=== PATIENT | female | born 1995 | race Two or more races ===

== ENCOUNTER 2017-06-13 15:38 | Observation (INO) | payer MEDICAID ==
[~2017-06-13] VITALS: Ht 177.8 cm; Wt 59.0 kg
[2017-06-13 17:18] LABS: Basophils # (auto) 0 uL; Basophils % (auto) 0.2 % (0.0-2.0); Eosinophils # (auto) 0.1 uL; Eosinophils % (auto) 0.7 % (0.0-7.0); Hematocrit 44.1 % (36.0-46.0); Hemoglobin 14.7 g/dL (12.2-16.2); Lymphocytes # (auto) 1.4 uL; Mean Corpuscular Hemoglobin 28.8 pg (28.0-32.0); Mean Corpuscular Hgb Conc. 33.4 g/dL (32.0-36.0); Mean Corpuscular Volume 86.2 fL (80.0-100.0); Mean Platelet Volume 8.3 fL (6.9-10.8); Monocytes % (auto) 7.2 % (0.0-12.0); Neutrophils # (auto) 11.5 uL; Neutrophils % (auto) 81.9 % (37.0-80.0); Platelet Count (auto) 415 10^3/uL (140-450); Red Cell Distribution Width 14.6 % (11.8-14.3)
[2017-06-13 17:23] LABS: Urine Bilirubin Negative (Negative); Urine Blood Negative /uL (Negative); Urine Color Yellow (Yellow); Urine Glucose Normal (Normal); Urine Ketone Negative (Negative); Urine Nitrite POSITIVE (Negative); Urine RBC 3 /hpf (0 - 4); Urine Squamous Epithelial Cell FEW /hpf (<5); Urine Urobilinogen Normal (Negative); Urine WBC Clumps PRESENT /hpf (None Seen); Urine pH 6.5 (5.0-8.0)
[2017-06-13 17:35] LABS: BUN/Creatinine Ratio 11.6; Calcium 8.9 mg/dL (8.5-10.1); Potassium 4.9 mmol/L (3.5-5.1)
[2017-06-13] MEDS ORDERED: SODIUM CHLORIDE 0.9% 1,000 ML IVB ONE (19:00)
[2017-06-13] MEDS ORDERED: ONDANSETRON HCL 4 MG/2 ML VIAL IV ONE (19:00)
[2017-06-13] MEDS ORDERED: cefTRIAXone 1GM/50ML D5W 50 ML IV ONE (20:30)
[2017-06-13 21:15] VITALS: BP 124/75
== END 2017-06-14 00:03 | disposition home or self-care (01) | DRG 463 ==
LOC: ER 15:45 → OVERFLOW 19:03 → ER 06-14 00:01
PROVIDERS: ADMIT Family Medicine; ATTEND Family Medicine
DX: N39.0 Urinary tract infection, site not specified (principal); F17.210 Nicotine dependence, cigarettes, uncomplicated; R11.2 Nausea with vomiting, unspecified; R10.31 Right lower quadrant pain
CPT/HCPCS: 36415; 71010; 74176; 76856; 80048; 81001; 84702; 85025; 96365; 96375; G0378; J0696; J2405

== ENCOUNTER 2018-02-13 18:08 | Emergency (ER) | payer MEDICAID ==
[~2018-02-13] VITALS: Ht 177.8 cm; Wt 54.4 kg
[2018-02-13 18:33] VITALS: BP 128/79
== END 2018-02-13 22:00 | disposition left against medical advice (07) ==
LOC: ER 18:08
DX: R19.00 Intra-abdominal and pelvic swelling, mass and lump, unspecified site (principal); Z53.21 Procedure and treatment not carried out due to patient leaving prior to being seen by health care provider

== ENCOUNTER 2018-02-14 01:54 | Emergency (ER) | payer MEDICAID ==
[~2018-02-14] VITALS: Ht 177.8 cm; Wt 59.0 kg
[2018-02-14 02:56] LABS: Basophils # (auto) 0.1 uL; Basophils % (auto) 0.8 % (0.0-2.0); Eosinophils # (auto) 0.2 uL; Eosinophils % (auto) 1.4 % (0.0-7.0); Hematocrit 46.6 % (36.0-46.0); Hemoglobin 15.7 g/dL (12.2-16.2); Lymphocytes # (auto) 2.4 uL; Lymphocytes % (auto) 20.1 % (10.0-50.0); Mean Corpuscular Hemoglobin 29.7 pg (28.0-32.0); Mean Corpuscular Hgb Conc. 33.6 g/dL (32.0-36.0); Mean Corpuscular Volume 88.3 fL (80.0-100.0); Monocytes # (auto) 1.3 uL; Monocytes % (auto) 10.9 % (0.0-12.0); Neutrophils % (auto) 66.8 % (37.0-80.0); Nucleated Red Blood Cells % 0.1 %; Platelet Count (auto) 281 10^3/uL (140-450); Red Blood Cells 5.28 10^6/uL (4.0-5.20); Red Cell Distribution Width 14.2 % (11.8-14.3); White Blood Cell 11.9 10^3/uL (4.4-10.8)
[2018-02-14 03:11] LABS: Albumin 3.7 g/dL (3.4-5.0); BUN/Creatinine Ratio 15.9; Calcium 9.1 mg/dL (8.5-10.1); Potassium 4.3 mmol/L (3.5-5.1)
[2018-02-14 03:14] LABS: Bilirubin, Total 0.5 mg/dL (0.2-1.0); Total Protein 8.2 g/dL (6.4-8.2)
[2018-02-14 05:29] LABS: Urine Bacteria MOD /hpf (None Seen); Urine Blood Negative /uL (Negative); Urine Mucus FEW (None Seen); Urine Specific Gravity 1.028 (1.001-1.035); Urine WBC 38 /hpf (0 - 5)
[2018-02-14 05:55] LABS: Alcohol, Urine < 3.0 mg/dL (0-5); Amphetamine Screen, Urine POSITIVE (NEGATIVE); Barbiturate Scree,Urine NEGATIVE (NEGATIVE); Benzodiazephine Screen, Urine NEGATIVE (NEGATIVE); Cannabinoid Screen, Urine NEGATIVE (NEGATIVE); Cocaine Screen, Urine NEGATIVE (NEGATIVE); Opiate Scree,Urine NEGATIVE (NEGATIVE); Phencyclidine Screen, Urine NEGATIVE (NEGATIVE)
[2018-02-14 07:41] VITALS: BP 101/63
[2018-02-14] MEDS ORDERED: HYDROcodone-ACET 10/325MG TAB PO ONE (08:00)
== END 2018-02-14 08:24 | disposition home or self-care (01) ==
LOC: ER 01:54
DX: M25.552 Pain in left hip (principal); N39.0 Urinary tract infection, site not specified; F15.10 Other stimulant abuse, uncomplicated; F17.210 Nicotine dependence, cigarettes, uncomplicated; F12.10 Cannabis abuse, uncomplicated; Z88.0 Allergy status to penicillin
CPT/HCPCS: 36415; 80053; 80307; 81001; 83605; 85025; 87040

== ENCOUNTER → 2018-03-15 | Emergency (ER) | payer MEDICAID | END | disposition left against medical advice (07) | LOC: ER 21:07 | DX: R11.10 Vomiting, unspecified (principal); Z53.21 Procedure and treatment not carried out due to patient leaving prior to being seen by health care provider ==

== ENCOUNTER 2018-03-20 20:45 | Emergency (ER) | payer MEDICAID ==
[~2018-03-20] VITALS: Ht 175.3 cm; Wt 52.2 kg
[2018-03-20 21:53] VITALS: BP 121/84
[2018-03-20] MEDS ORDERED: HYDROcodone-ACET 10/325MG TAB PO ONE (22:30)
== END 2018-03-20 22:52 | disposition home or self-care (01) ==
LOC: ER 20:45
DX: M25.511 Pain in right shoulder (principal); F17.210 Nicotine dependence, cigarettes, uncomplicated; Z88.0 Allergy status to penicillin
CPT/HCPCS: 73000; 81025

== ENCOUNTER 2018-04-19 20:34 | Emergency (ER) | payer MEDICAID ==
[~2018-04-19] VITALS: Ht 175.3 cm; Wt 61.2 kg
[2018-04-19 20:40] VITALS: BP 129/89
[2018-04-19] MEDS ORDERED: ACETAMINOPHEN 500 MG TAB PO ONE (20:49)
[2018-04-19 21:51] LABS: Basophils # (auto) 0.1 uL; Eosinophils # (auto) 0 uL; Eosinophils % (auto) 0.1 % (0.0-7.0); Hemoglobin 14.5 g/dL (12.2-16.2); Lymphocytes # (auto) 0.7 uL; Lymphocytes % (auto) 10.1 % (10.0-50.0); Mean Corpuscular Hgb Conc. 32.9 g/dL (32.0-36.0); Mean Corpuscular Volume 84.9 fL (80.0-100.0); Monocytes # (auto) 0.6 uL; Monocytes % (auto) 9.4 % (0.0-12.0); Neutrophils # (auto) 5.3 uL; Neutrophils % (auto) 78.4 % (37.0-80.0); Nucleated Red Blood Cells % 0.1 %; Platelet Count (auto) 234 10^3/uL (140-450); Red Blood Cells 5.19 10^6/uL (4.0-5.20); Red Cell Distribution Width 13.6 % (11.8-14.3); White Blood Cell 6.7 10^3/uL (4.4-10.8)
[2018-04-19 22:06] LABS: Alanine Aminotransferase 26 U/L (13-56); Albumin 2.7 g/dL (3.4-5.0); Anion Gap 9 (5-15); Aspartate Aminotransferase 31 U/L (15-37); BUN/Creatinine Ratio 9.5; Blood Urea Nitrogen 8 mg/dL (7-18); Calcium 7.7 mg/dL (8.5-10.1); Carbon Dioxide 23 mmol/L (21-32); Chloride 101 mmol/L (98-107); GFR African American 111 mL/min; GFR Non-African American 92 mL/min; Glucose 82 mg/dL (74-106); Potassium 3.6 mmol/L (3.5-5.1); Sodium 133 mmol/L (136-145)
[2018-04-19 22:09] LABS: Alkaline Phosphatase 86 U/L (45-117); Bilirubin, Total 0.3 mg/dL (0.2-1.0); Total Protein 7.7 g/dL (6.4-8.2)
[2018-04-19 22:28] LABS: INR 0.99 (0.9-1.15); Partial Thromboplastin Time 33.9 sec (23.78-33.04); Prothrombin Time 10.6 sec (9.27-12.13)
== END 2018-04-20 | disposition left against medical advice (07) ==
LOC: ER 20:37
DX: R10.9 Unspecified abdominal pain (principal); R53.1 Weakness; R50.9 Fever, unspecified; Z53.21 Procedure and treatment not carried out due to patient leaving prior to being seen by health care provider
CPT/HCPCS: 36415; 71045; 80053; 83605; 83880; 85025; 85610; 85730

== ENCOUNTER 2018-06-04 07:05 | Emergency (ER) | payer SELFPAY ==
[~2018-06-04] VITALS: Ht 177.8 cm; Wt 56.7 kg
[2018-06-04 07:30] VITALS: BP 130/83
[2018-06-04] MEDS ORDERED: AZITHROMYCIN 250 MG TAB PO ONE (08:15)
[2018-06-04] MEDS ORDERED: cefTRIAXone SOD 1,000 MG VL IM ONE (08:15)
[2018-06-04 08:33] LABS: Urine Pregnacy Test Negative (Negative)
[2018-06-04 08:37] LABS: Urine Bacteria FEW /hpf (None Seen); Urine Blood Negative /uL (Negative); Urine Specific Gravity 1.023 (1.001-1.035); Urine WBC 36 /hpf (0 - 5)
[2018-06-04 08:52] LABS: Alcohol, Urine < 3.0 mg/dL (0-5); Amphetamine Screen, Urine POSITIVE (NEGATIVE); Barbiturate Scree,Urine NEGATIVE (NEGATIVE); Benzodiazephine Screen, Urine NEGATIVE (NEGATIVE); Cannabinoid Screen, Urine NEGATIVE (NEGATIVE); Cocaine Screen, Urine NEGATIVE (NEGATIVE); Opiate Scree,Urine NEGATIVE (NEGATIVE); Phencyclidine Screen, Urine NEGATIVE (NEGATIVE)
== END 2018-06-04 09:00 | disposition home or self-care (01) ==
LOC: ER 07:05
DX: A60.00 Herpesviral infection of urogenital system, unspecified (principal); N39.0 Urinary tract infection, site not specified; F15.10 Other stimulant abuse, uncomplicated; F12.10 Cannabis abuse, uncomplicated; F17.210 Nicotine dependence, cigarettes, uncomplicated; Z88.0 Allergy status to penicillin
CPT/HCPCS: 80307; 81001; 81025; 82962; 96372; 99284; J0696

== ENCOUNTER 2025-07-24 17:51 | Emergency (ER) | payer MEDICAID ==
[~2025-07-24] VITALS: Ht 175.3 cm; Wt 69.1 kg
[2025-07-24 18:46] LABS: Hematocrit 44.9 % (36.0-46.0); Hemoglobin 15.5 g/dL (12.2-16.2); Mean Corpuscular Hemoglobin 29.9 pg (28.0-32.0); Mean Corpuscular Volume 86.6 fL (80.0-100.0); Nucleated Red Blood Cells % 0.2 %
--- NOTE | 2025-07-24 18:54 | ED.PDOC ---
GI ASSESSMENT HPI Comments HPI: Past Medical history: Crohn's Radha, Lupus Past Surgical history: Hernia Repair Medications: Social History: Denies smoking, ETOH use. Uses Methamphetamine/ Marijuana Allergies: Penicillin GALLARDO: HPI: Poor Historian. 29-year-old female presents to emergency department for one day history of suprapubic pain constant without any alleviating precipitating factors. Denies any associated symptoms of diarrhea nausea or vomiting or fever. Patient admits to use of methamphetamine. She has history of Crohn's but she does not think that this is her Crohn's. Patient is not sure if she is or not. Denies any bleeding from anywhere. Patient did not take any medications for her symptoms prior to arrival to the ED. Denies any vaginal bleed. REVIEW OF SYSTEMS: CONSTITUTIONAL: Denies acute: fever, diaphoresis, chills, generalized weakness. HEAD: Denies acute: headache, photophobia Eyes: Denies acute: Double vision, vision loss, eye pain, eye discharge. EARS: Denies acute: tinnitus, hearing loss, ear discharge, ear pain, THROAT: Denies acute: sore throat, swelling, difficulty swallowing , pain with swallowing, change in voice. NECK: Denies acute: neck pain, neck swelling, stiff neck. HEART: Denies acute : chest pain, palpitations, LUNGS: Denies acute: SOB, wheezing, cough, hemoptysis ABDOMEN: Denies acute: Nausea, Vomiting, diarrhea, melena , hematemesis, hematochezia SKIN: Denies acute: rash, redness, lesions, itchiness. EXTREMITIES: Denies acute: calf pain, numbness, tingling, weakness, denies pain in extremity. Denies acute: Low back pain. Neuro: Denies acute: focal neurological deficit, motor or sensory focal neurological deficit, tremors, seizure like activity, confusion, dizziness, change in mental status, loss of bowel or bladder function, cauda equina like symptoms. : Denies acute: dysuria, hematuria, flank pain, increase in urinary frequency. PSYCH: Denies acute: hallucination, suicidal ideation, homicidal ideation. FEMALE: Denies acute: abnormal vaginal bleeding, foul odor, unusual discharge. PHYSICAL EXAM: General: ----[id number]----acute distress, awake and alert. Head: normocephalic, atraumatic. No raccoon's eyes, no miguel sign. Neck: supple, trachea is midline, no swelling. Throat: Normal phonation. Eyes:, no erythema, no purulent discharge, no proptosis, no icterus. Heart: regular tachycardic, no significant murmur appreciated. Lungs: no apparent respiratory distress, Able to speak in full sentences. No wheezing, no rhonchi, no crackles. No stridors Clear to auscultation bilaterally. Abdomen: Suprapubic tender to palpation, non distended, soft, no guarding, no rebound, + bowel sounds. Neuro: Awake, Alert, oriented to name, self, situation, follows commands GCS=15. Speech is normal. Skin: no petechia, no purpura, no cyanosis, non-pale, not jaundice. Lower extremities: --trace- Pitting edema no deformity, no focal swelling, no calf TTP. Makes eye contact. moves all four extremities. Face: no apparent facial droop. Ambulating in the ED independently. ED COURSE: DISCLAIMER: This medical document was created using an electronic medical record system with voice recognition software and computerized dictation system. Although this document has been carefully reviewed, there might still be some phonetic and typographical errors. Occasional wrong-word or "sound-alike" substitutions may have occurred due to the inherent limitations of voice recognition software. These areas are purely typographical due to imperfections of the software programs and do not reflect any compromise in the patient's medical care. Please read the chart carefully and recognize, using context, where these substitutions have occurred. Chief Complaint: Abdominal Pain Time Seen by MD: 18:50 Primary Care Provider: NONE Reviewed Notes: Nurses Notes, Medications, Allergies Allergies: Coded Allergies: Penicillins (Verified Allergy, Severe, 06/13/17) Home Meds Active Scripts Diphenhydramine Hcl (Benadryl Allergy) 25 Mg Cap, 25 MG PO Q8HR for 5 Days, #15 CAP Prov:DAVID BARDALES DO 07/24/25 Cephalexin Monohydrate (Cephalexin) 500 Mg Cap, 500 MG PO Q8HR for 5 Days, #15 CAP Prov:DAVID BARDALES DO 07/24/25 Information Source: Patient Mode of Arrival: Ambulatory Was a procedure done? Was a procedure done?: No GI differential Dx Differential Diagnosis: Other (DDX include Diverticulitis, colitis, gastroenteritis, acute abdomen, SBO, enteritis, constipation, volvulus, appendicitis, Gallbladder disease, choledocolithiasis, ascending cholangitis, pancreatitis, intraAbdominal mass/neoplasm, hepatitis, UTI, pylonephritis, kidney stone, aneurysm, dissection, Inflammatory bowel disease, gastroparesis, ischemic bowel,,,,,,Food poisoning, bacterial/parasitic/viral etiology, trauma, diabetes DKA,ovarian torsion, ovarian cyst/mass, tubo-ovarian abscess, , ectopic , PID, STD.) X-Ray, Labs, Meds, VS Vital Signs Date Time Temp Pulse Resp B/P (MAP) Pulse Ox O2 Delivery O2 Flow Rate FiO2 07/24/25 18:00 98.0 99 16 129/99 100 98.0 Lab Test 07/24/25 19:05 07/24/25 18:29 Range/Units Urine Color Yellow Yellow Urine Clarity Turbid H Clear Urine pH 6.0 5.0-9.0 Urine Specific [place] 1.034 1.001-1.035 Urine Protein 1+ H Negative Urine Ketones 1+ H Negative Urine Blood Negative Negative /uL Urine Nitrite Negative Negative Urine Bilirubin Negative Negative Urine Urobilinogen Normal Negative mg/dL Urine Leukocyte Esterase 1+ Negative /uL Urine RBC 3 0 - 4 /hpf Urine Microscopic WBC 13 H 0-5 /HPF Urine Squamous Epithelial Cells Mod <5 /hpf Urine Bacteria None seen None Seen /hpf Urine Mucus Few None Seen Urine Glucose Normal Normal mg/dL Urine Test Positive Negative Urine Opiates Screen Neg NEGATIVE Urine Fentanyl Screen Neg NEGATIVE Urine Barbiturates Screen Neg NEGATIVE Urine Phencyclidine Screen Neg NEGATIVE Urine Amphetamines Screen Pos NEGATIVE Urine Benzodiazepines Screen Neg NEGATIVE Urine Cocaine Screen Neg NEGATIVE Urine Cannabinoids Screen Neg NEGATIVE White Blood Count 11.3 H 4.4-10.8 10^3/uL Red Blood Count 5.18 4.0-5.20 10^6/uL Hemoglobin 15.5 12.2-16.2 g/dL Hematocrit 44.9 36.0-46.0 % Mean Corpuscular Volume 86.6 80.0-100.0 fL Mean Corpuscular Hemoglobin 29.9 28.0-32.0 pg Mean Corpuscular Hemoglobin Concent 34.5 32.0-36.0 g/dL Red Cell Distribution Width 13.2 11.8-14.3 % Platelet Count 297 140-450 10^3/uL Mean Platelet Volume 9.0 6.9-10.8 fL Neutrophils (%) (Auto) 77.5 37.0-80.0 % Lymphocytes (%) (Auto) 14.5 10.0-50.0 % Monocytes (%) (Auto) 7.3 0.0-12.0 % Eosinophils (%) (Auto) 0.3 0.0-7.0 % Basophils (%) (Auto) 0.4 0.0-2.0 % Neutrophils # (Auto) 8.8 H 1.6-8.6 10 ^3/uL Lymphocytes # (Auto) 1.6 0.4-5.4 10 ^3/uL Monocytes # (Auto) 0.8 0-1.3 10 ^3/uL Eosinophils # (Auto) 0 0-0.8 10 ^3/uL Basophils # (Auto) 0 0-0.2 10 ^3/uL Nucleated Red Blood Cells 0.2 % Sodium Level 139 136-145 mmol/L Potassium Level 3.9 3.5-5.1 mmol/L Chloride Level 106 98-107 mmol/L Carbon Dioxide Level 23 20-31 mmol/L Anion Gap 10 5-15 Blood Urea Nitrogen 8 L 9-23 mg/dL Creatinine 0.85 0.550-1.02 mg/dL Glomerular Filtration Rate Calc 96 >90 mL/min BUN/Creatinine Ratio 9.4 L 10.0-20.0 Serum Glucose 81 74-106 mg/dL Lactic Acid Level 1.1 0.4-2.0 mmol/L Calcium Level 9.8 8.7-10.4 mg/dL Total Bilirubin 1.0 0.2-1.0 mg/dL Aspartate Amino Transferase (AST) 25 13-40 U/L Alanine Aminotransferase (ALT) 20 7-40 U/L Alkaline Phosphatase 67 46-116 U/L Total Protein 7.8 5.7-8.2 g/dL Albumin 4.6 3.2-4.8 g/dL Lipase 34 12-53 U/L Beta HCG, Quantitative 209.2 H 1.5-4.2 mIU/mL Time of 1ST Reevaluation: :20 Reevaluation 1ST: Unchanged Patient Education/Counseling: Diagnosis, Treatment Family Education/Counseling: No Family Present Comments Patient states that she had Keflex in the past with Benadryl and had no adverse effect/allergic reaction with this regimen. She has history of anaphylactic reaction to penicillin. She does not know if she ever had Rocephin before or not. MDM: patient presented with the above HPI.---abdominal pain---workup was initiated. patient was found with the above mentioned diagnosis. the following medications were ordered: please refer to order lists of meds and tests obtained by myself Dr. Bardales. Patient ED course and VS have been stabilized. Patient has been reassessed in the ED and remained in a stable condition. Pertinent incidental findings were discussed with the patient and/or family. Patient/family voices understanding and is agreeable with plan. Patient has been observed in the ED adequate length of time to insure improvement/stability. Escalation of care considered: Consideration of escalation to observation or admission Patient was found with a positive test she did not know about. Pelvic ultrasound was obtained which was probably too early to reveal any intrauterine at this time. Beta-hCG level is still very low. We will continue to monitor. Patient was DISCHARGED home in a stable condition. All the reports of any imaging studies that were ordered by myself were reviewed by myself. SEPSIS Sepsis Screen Date sepsis recognized/suspect: Jul 24, 2025 Time Sepsis recognized/suspect: 1800 Recent Procedure: No Respiratory Rate >20: No Heart Rate >90: Yes Temp<36 C (96.8 F) or >38.3 C: No SBP <90 or MAP <65 mmHG: No New Acute Mental Status Change: No Is the patient on CPAP, BIPAP,: No Physician Orders Rug Cleaner Hand (07/24/25 ) Ob Ultrasound Comp Less 14wks (07/24/25 20:08) Vital Signs Date Time Temp Pulse Resp B/P (MAP) Pulse Ox O2 Delivery O2 Flow Rate FiO2 07/24/25 18:00 98.0 99 16 129/99 100 98.0 Laboratory Tests Test 07/24/25 18:29 Lactic Acid Level 1.1 mmol/L (0.4-2.0) White Blood Count 11.3 10^3/uL (4.4-10.8) H Departure 1 Departure Time of Disposition: 20:21 Impression: Primary Impression: Urinary tract infection Additional Impressions: Suprapubic pain Positive test Methamphetamine abuse Disposition: HOME / SELF CARE / HOMELESS Condition: Stable Additional Instructions: Additional instructions: Please read all instructions provided in this packet carefully. You MUST follow-up with your primary care/family doctor in 1 to 2 days. If you are unable to see your primary care/family doctor, please return to our emergency room for re-assessment and re-evaluation in 1 to 2 days. Return to the emergency room here in our facility or to the nearest ER [facility] if your symptoms change or worsen. CONSULTATIONS: you MUST Follow-up for consultation as soon as possible with: -gastroenterology and OB Gyne doctor in 1-2 days. Please call for appointment You MUST call the consultants office yourself to make an appointment. You may need to arrange that through your insurance and/or your primary/family doctor. If you are unable to see the financial services consultant in 1 to 2 days, you must return to our emergency room (or any other ER of your choice) for re-assessment and re- evaluation. Adequate fluid hydration. Although you have been discharged from the Emergency Department, this does not mean that you have a "clean bill of health". No definitive diagnosis for your symptoms has been made today. It is possible that you are in the process of developing a serious illness. This is why you must return to the ED without fail if any new or worsening symptoms develop. Absolute pelvic rest. Repeat pelvic ultrasound in 4-5 days. Repeat beta-hCG levels in 48-72 hours. Your beta-hCG level today is 209 As we discussed take the Benadryl pill 1st then wait 30 minutes and take the antibiotics afterwards to prevent any allergic reaction. Take daily vitamins. Below is a copy of your radiological report for follow up: [address] [address] Ph: [phone] DIAGNOSTIC IMAGING Diagnostic Imaging Report : [id number] Signed PATIENT: BESS GALLARDO ACCT: [id number] UNIT: [id number] : 1995 LOC: ER ROOM / BED: / AGE / SEX: 29 / F ADM STATUS: REG ER SERVICE 07 ORDERING PHYSICIAN: DAVID BARDALES DO PROCEDURE(s): OB4US - OB ULTRASOUND COMP LESS 14WKS REASON: pelvic pain ORDER NUMBER(s): [id number], ACCESSION NUMBER(s): [id number] OB ULTRASOUND <14 WEEKS: HISTORY: pelvic pain TECHNIQUE: Multiple real-time grayscale sonographic images of the pelvis with duplex Doppler color flow, spectral and M-mode analysis. COMPARISON: CT ABDOMEN PELVIS W CON on DOS: 07/25/24, US PELVIC COMPLETE on DOS: 04/22/24, CT ABDOMEN PELVIS W CON on DOS: 01/11/24, US TRANSVAGINAL on DOS: 12/21/23, CT ABDOMEN PELVIS WO CON on DOS: 11/05/23 FINDINGS: The uterus measures 8.2 x 3.1 x 5.2 cm The cervix is unremarkable Ovaries not imaged as the patient did not wish to continue. No intrauterine gestation is seen. IMPRESSION: Limited assessment as the patient did not wish to continue with the study. No intrauterine gestation is seen. Ovaries and adnexa not imaged. ATED BY: ELIS VU MD DICTATED DATE/TIME: 07/24/252118 SIGNED BY: ELIS VU MD SIGNED DATE/TIME: 07/24/252118 CC: e-Prescriptions Diphenhydramine Hcl (Benadryl Allergy) 25 Mg Cap 25 MG PO Q8HR for 5 Days, #15 CAP Prov: DAVID BARDALES DO 07/24/25 Cephalexin Monohydrate (Cephalexin) 500 Mg Cap 500 MG PO Q8HR for 5 Days, #15 CAP Prov: DAVID BRADALES DO 07/24/25 Discharged With: Self Critical Care Note Critical Care Time?: No Heart Score Heart Score: Heart Score Response (Comments) Value History N/A 0 EKG N/A 0 Age N/A 0 Risk Factors N/A 0 Troponin N/A 0 Total 0 I personally scribed for DAVID BARDALES DO ([email or web address]) on 07/24/25 at 18:54. Electronically submitted by Tomas Roman ([email or web address]). DAVID BARDALES DO Jul 24, 2025 18:54
[2025-07-24 19:01] LABS: Alanine Aminotransferase 20 U/L (7-40); Albumin 4.6 g/dL (3.2-4.8); Alkaline Phosphatase 67 U/L (46-116); Anion Gap 10 (5-15); BUN/Creatinine Ratio 9.4 (10.0-20.0); Calcium 9.8 mg/dL (8.7-10.4); Carbon Dioxide 23 mmol/L (20-31); Chloride 106 mmol/L (98-107); Glucose 81 mg/dL (74-106); Lipase 34 U/L (12-53); Potassium 3.9 mmol/L (3.5-5.1); Sodium 139 mmol/L (136-145); Total Protein 7.8 g/dL (5.7-8.2)
[2025-07-24 19:02] LABS: Bilirubin, Total 1.0 mg/dL (0.2-1.0); Blood Urea Nitrogen 8 mg/dL (9-23)
[2025-07-24 19:41] LABS: Amphetamine Screen, Urine Pos (NEGATIVE); Barbiturate Scree,Urine Neg (NEGATIVE); Benzodiazephine Screen, Urine Neg (NEGATIVE); Cannabinoid Screen, Urine Neg (NEGATIVE); Cocaine Screen, Urine Neg (NEGATIVE); Opiate Scree,Urine Neg (NEGATIVE); Phencyclidine Screen, Urine Neg (NEGATIVE)
[2025-07-24 19:43] LABS: Urine Protein, UAD 1+ (Negative)
[2025-07-24] MEDS ORDERED: CEPH500C PO (20:22)
[2025-07-24] MEDS ORDERED: DIPH25CA66 PO (20:29)
--- NOTE | 2025-07-24 21:22 | DVH ---
OB ULTRASOUND <14 WEEKS: HISTORY: pelvic pain TECHNIQUE: Multiple real-time grayscale sonographic images of the pelvis with duplex Doppler color f low, spectral and M-mode analysis. COMPARISON: CT ABDOMEN PELVIS W CON on DOS: 07/25/24, US PELVIC COMPLETE on DOS: 04/22/24, CT ABDOMEN PE LVIS W CON on DOS: 01/11/24, US TRANSVAGINAL on DOS: 12/21/23, CT ABDOMEN PELVIS WO CON on DOS: 11/05/23 FINDINGS: The uterus measures 8.2 x 3.1 x 5.2 cm The cervix is unremarkable Ovaries not imaged as the patient did not wish to continue. No intrauterine gestation is seen. IMPRESSION: Limited assessment as the patient did not wish to continue with the study. No intrauterine gestation is seen. Ovaries and adnexa not imaged.
[2025-07-24 21:40] VITALS: BP 143/90; PULSE 96; RESP 14; TEMP 98.1; O2SAT 100
[2025-07-27 02:07] LABS: Chlamydia Trachomatis, NAA Negative (Negative); Neisseria gonorrhoeae, NAA Negative (Negative)
== END 2025-07-24 22:20 | disposition home or self-care (01) ==
LOC: ER 17:51
DX: O23.41 Unspecified infection of urinary tract in pregnancy, first trimester (principal); O26.891 Other specified pregnancy related conditions, first trimester; R10.20 Pelvic and perineal pain unspecified side; N39.0 Urinary tract infection, site not specified; F12.90 Cannabis use, unspecified, uncomplicated; F15.10 Other stimulant abuse, uncomplicated; Z32.01 Encounter for pregnancy test, result positive; Z3A.01 Less than 8 weeks gestation of pregnancy; Z88.0 Allergy status to penicillin; Z98.890 Other specified postprocedural states; Z79.899 Other long term (current) drug therapy
CPT/HCPCS: 36415; 76801; 76817; 80053; 80307; 81001; 81025; 83605; 83690; 84702; 85025

== ENCOUNTER 2025-07-31 05:08 | Emergency (ER) | payer MEDICAID ==
[~2025-07-31] VITALS: Ht 175.3 cm; Wt 69.8 kg
[~2025-07-31 05:08] MED LIST: CEPH500C PO; DIPH25CA66 PO
[2025-07-31 05:10] VITALS: BP 135/82; PULSE 91; RESP 16; TEMP 97.6; O2SAT 100
== END 2025-07-31 08:35 | disposition left against medical advice (07) ==
LOC: ER 05:08
DX: O26.891 Other specified pregnancy related conditions, first trimester (principal); R10.20 Pelvic and perineal pain unspecified side; Z3A.01 Less than 8 weeks gestation of pregnancy; Z53.21 Procedure and treatment not carried out due to patient leaving prior to being seen by health care provider

== ENCOUNTER 2025-08-13 23:48 | Emergency (ER) | payer MEDICAID ==
[~2025-08-13] VITALS: Ht 175.3 cm; Wt 70.9 kg
--- NOTE | 2025-08-14 00:56 | ED.PDOC ---
History of Present Illness HPI Comments 29 y/o F presents with c/c of nonradiating, umbilical pain. Patient reports on being 7x weeks , currently, with her 4th ([id number]). She states on sudden, unprovoked, and atraumatic onset of 8/10 pain, yesterday, in the same area where she received a hernia mesh repair, approximately, a year ago. Denies any nausea, vomiting, diarrhea, or further associated symptoms. Additional history of lupus and Crohn's disease. 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 Chief Complaint: Abdominal Pain Time Seen by MD: 00:20 Primary Care Provider: NONE Reviewed Notes: Nurses Notes, Medications, Allergies Allergies: Coded Allergies: Penicillins (Verified Allergy, Severe, 06/13/17) Home Meds Active Scripts Diphenhydramine Hcl (Benadryl Allergy) 25 Mg Cap, 25 MG PO Q8HR for 5 Days, #15 CAP Prov:DAVID BARDALES DO 07/24/25 Cephalexin Monohydrate (Cephalexin) 500 Mg Cap, 500 MG PO Q8HR for 5 Days, #15 CAP Prov:DAVID BARDALES DO 07/24/25 Information Source: Patient Mode of Arrival: Ambulatory Severity: Moderate Timing: Hours Duration: Since onset Prehospital treatment: None Past Medical History Past Medical History (Other): Crohn's disease Lupus Surgical History: Hernia Repair LICENSED PSYCHOLOGIST MANAGER History: Denies all LICENSED PSYCHOLOGIST MANAGER Hx Family History Family History: Family hx of DM, Family hx of HTN Family History (Other): maternal family history of gastrointestinal issues Social History Smoker: Quit Greater Than 1 Year Alcohol: Rarely Drugs: Marijuana, Methamphetamine Lives In: Home Constitutional: denies: chills, diaphoresis, fatigue, fever, malaise, sweats, weakness, others EENTM: denies: blurred vision, double vision, ear bleeding, ear discharge, ear drainage, ear pain, ear ringing, eye pain, eye redness, hearing loss, mouth pain, mouth swelling, nasal discharge, nose bleeding, nose congestion, nose pain, photophobia, tearing, throat pain, throat swelling, voice changes, others Respiratory: denies: cough, hemoptysis, orthopnea, SOB at rest, shortness of breath, SOB with excertion, stridor, wheezing, others Cardiovascular: denies: chest pain, dizzy spells, diaphoresis, Dyspnea on exertion, edema, irregular heart beat, left arm pain, lightheadedness, palpitations, PND, syncope, others Gastrointestinal: reports: abdominal pain; denies: abdomen distended, blood streaked bowels, constipated, diarrhea, dysphagia, difficulty swallowing, hem atemesis, melena, nausea, poor appetite, poor fluid intake, rectal bleeding, rectal pain, vomiting, others Genitourinary: denies: abnormal vagina bleeding, burning, dyspareunia, dysuria, flank pain, frequency, hematuria, incontinence, pain, , vagina discharge, urgency, others Neurological: denies: dizziness, fainting, headache, left sided numbness, left sided weakness, numbness, paresthesia, pre-existing deficit, right sided numbness, right sided weakness, seizure, speech problems, tingling, tremors, weakness, others Musculoskeletal: denies: back pain, gout, joint pain, joint swelling, muscle pain, muscle stiffness, neck pain, others Integumetry: denies: bruises, change in color, change in hair/nails, dryness, laceration, lesions, lumps, rash, wounds, others Allergic/Immunocompromised: denies: Difficulty Healing, Frequent Infections, Hives, Itching, others Hematologic/Lymphatic: denies: anemia, blood clots, easy bleeding, easy bruising, swollen glands, others Endocrine: denies: excessive hunger, excessive sweating, excessive thirst, excessive urination, flushing, intolerance to cold, intolerance to heat, unexplained weight gain, unexplained weight loss, others Psychiatric: denies: anxiety, bipolar disorder, depression, hopeless, panic disorder, schizophrenia, sleepless, suicidal, others All Other Systems: Reviewed and Negative Physical Exam General Appearance: No Apparent Distress HEENT: Normal ENT Inspection, Pharynx Normal, TMs Normal Neck: Full Range of Motion, Non-Tender, Normal, Normal Inspection Respiratory: Chest Non-Tender, Lungs Clear, No Accessory Muscle Use, No Respiratory Distress, Normal Breath Sounds Cardiovascular: No Edema, No JVD, No Murmur, No Gallop, Normal Peripheral Puls es, Regular Rate/Rhythm Breast Exam: Deferred Gastrointestinal: No Organomegaly, Non Tender, No Pulsatile Mass, Normal Bowel Sounds, Soft Genitalia: Deferred Pelvic: Deferred Rectal: Deferred Extremities: No calf tenderness, Normal capillary refill, Normal inspection, Normal range of motion, Non-tender, No pedal edema Musculoskeletal : Apperance: Normal Neurologic: Alert, supervisor stitching department II-XII nml as Tested, No Motor Deficits, Normal Affect, Normal Mood, No Sensory Deficits Cerebellar Function: Normal Reflexes: Normal Skin: Dry, Normal Color, Warm Lymphatic: No Adenopathy Was a procedure done? Was a procedure done?: No Differential Dx Considerations may include: threatened , ectopic , gastritis, gastroenteritis, reappearing hernia, among others X-Ray, Labs, Meds, VS Vital Signs Date Time Temp Pulse Resp B/P (MAP) Pulse Ox O2 Delivery O2 Flow Rate FiO2 08/14/25 03:48 Room Air* 0 21 08/14/25 03:25 98.1 90 18 119/83 (95) 100 98.1 08/13/25 23:50 98.2 87 16 134/93 99 98.2 Lab Test 08/14/25 02:09 Range/Units Urine Color Light-yellow Yellow Urine Clarity Clear Clear Urine pH 6.5 5.0-9.0 Urine Specific [place] 1.026 1.001-1.035 Urine Protein Negative Negative Urine Ketones Negative Negative Urine Blood Negative Negative /uL Urine Nitrite Negative Negative Urine Bilirubin Negative Negative Urine Urobilinogen Normal Negative mg/dL Urine Leukocyte Esterase Negative Negative /uL Urine RBC None seen 0 - 4 /hpf Urine Microscopic WBC 2 0-5 /HPF Urine Squamous Epithelial Cells Few <5 /hpf Urine Bacteria None seen None Seen /hpf Urine Glucose Normal Normal mg/dL Urine Test Positive Negative The urine test is negative for any infection The urine test is positive for An ultrasound of the pelvis shows: IMPRESSION: IUP single live fetus measuring 6 weeks 6 days by crown-rump length, corresponding to an NATHANIEL of 04/03/2026 No acute abnormality detected. The patient understands and agrees with the management The patient is being discharged Time of 1ST Reevaluation: 00:50 Reevaluation 1ST: Unchanged Patient Education/Counseling: Diagnosis, Treatment, Prognosis, Need For Follow Up Family Education/Counseling: No Family Present SEPSIS Sepsis Screen Date sepsis recognized/suspect: Aug 13, 2025 Time Sepsis recognized/suspect: 2349 Recent Procedure: No On Antibiotic Therapy: No Respiratory Rate >20: No Heart Rate >90: No Temp<36 C (96.8 F) or >38.3 C: No SBP <90 or MAP <65 mmHG: No New Acute Mental Status Change: No Is the patient on CPAP, BIPAP,: No Physician Orders Ob Ultrasound Comp Less 14wks (08/14/25 00:20) Ob Trans Vaginal Us (08/14/25 ) Vital Signs Date Time Temp Pulse Resp B/P (MAP) Pulse Ox O2 Delivery O2 Flow Rate FiO2 08/14/25 03:48 Room Air* 0 21 08/14/25 03:25 98.1 90 18 119/83 (95) 100 98.1 08/13/25 23:50 98.2 87 16 134/93 99 98.2 Departure 1 Departure Time of Disposition: 04:08 Impression: Primary Impression: Abdominal pain during Qualified Codes: O26.899 - Other specified related conditions, unspecified trimester; R10.9 - Unspecified abdominal pain Disposition: 01 HOME / SELF CARE / HOMELESS Condition: Fair Discharged With: Self Critical Care Note Critical Care Time?: No Stability Stability form required: No Heart Score Heart Score: Heart Score Response (Comments) Value History N/A 0 EKG N/A 0 Age N/A 0 Risk Factors N/A 0 Troponin N/A 0 Total 0 I personally scribed for DASHA ONEILL MD ([email or web address]) on 08/14/25 at 00:56. Electronically submitted by Boubacar Arceo ([email or web address]). DASHA ONEILL MD Aug 14, 2025 00:56
--- NOTE | 2025-08-14 01:35 | DVH ---
OB ULTRASOUND <14 WEEKS: HISTORY: pain around her previous mesh TECHNIQUE: Multiple real-time grayscale sonographic images of the pelvis and gravid uterus with duplex Doppler color flow, spectral and M-mode analysis. TRANSDUCERS: COMPARISON: US OB ULTRASOUND COMP LESS 14WKS on DOS: 07/24/25, US PELVIC COMPLETE on DOS: 04/22/24, US TRANSVAGINAL on DOS: 12/21/23 FINDINGS: The uterus measures 10.1 x 6.5 x 6.5 cm Right ovary measures 2.8 x 2.3 x 2 cm with normal Doppler color flow. Left ovary measures 3 x 2.2 x 2.5 cm with normal Doppler color flow. IUP single fetus at 6 weeks 6 days average ultrasound age based on mean crown- rump length of 0.85 cm and gestational sac size of 2.16 cm heart rate detected at 134 beats per minute. Yolk sac is present. IMPRESSION: IUP single live fetus measuring 6 weeks 6 days by crown-rump length, corresponding to an NATHANIEL of 04/03/2026 No acute abnormality detected.
[2025-08-14 03:25] VITALS: BP 119/83; PULSE 90; RESP 18; TEMP 98.1; O2SAT 100
[2025-08-14 03:40] LABS: Urine Protein, UAD Negative (Negative)
== END 2025-08-14 04:24 | disposition home or self-care (01) ==
LOC: ER 23:48
DX: O99.611 Diseases of the digestive system complicating pregnancy, first trimester (principal); R10.33 Periumbilical pain; Z98.890 Other specified postprocedural states; Z88.0 Allergy status to penicillin; Z3A.01 Less than 8 weeks gestation of pregnancy
CPT/HCPCS: 76801; 76817; 81001; 81025

== ENCOUNTER 2025-08-23 10:13 | Emergency (ER) | payer MEDICAID ==
[~2025-08-23] VITALS: Ht 175.3 cm; Wt 72.7 kg
[2025-08-23 10:15] VITALS: TEMP 98.3
--- NOTE | 2025-08-23 10:31 | ED.PDOC ---
History of Present Illness HPI Comments 29F presents to the ER w/ prior MHx of Crohn's Dx, Lupus:SHx of Hernia Sx and the c/c of N/V. Pt reports on hbvaing had N/V associated w/ fatigue, and "tiredness" for the past 2 days. Pt notes on currently being 8 weeks . Pt has OB Hx of . Denies any symptoms at this time. Patient denies any CP, SOB, dizziness, numbness, tingling, fever, chills, or recent fall. Chief Complaint: Nausea/Vomiting Time Seen by MD: 10:25 Primary Care Provider: NONE Reviewed Notes: Nurses Notes, Medications, Allergies Allergies: Coded Allergies: Penicillins (Verified Allergy, Severe, 06/13/17) Home Meds Active Scripts Diphenhydramine Hcl (Benadryl Allergy) 25 Mg Cap, 25 MG PO Q8HR for 5 Days, #15 CAP Prov:DAVID BARDALES DO 07/24/25 Cephalexin Monohydrate (Cephalexin) 500 Mg Cap, 500 MG PO Q8HR for 5 Days, #15 CAP Prov:DAVID BARDALES DO 07/24/25 Information Source: Patient Mode of Arrival: Ambulatory Severity: Moderate Timing: Hours Duration: Since onset, Hours Prehospital treatment: None Past Medical History PAST MEDICAL HISTORY: Denies Past Medical History (Other): Crohn's Dx, Lupus Surgical History: Hernia Repair KIER HAND History: Denies all KIER HAND Hx Family History Family History: Family hx of DM, Family hx of HTN Family History (Other): maternal family history of gastrointestinal issues Social History Smoker: Quit Greater Than 1 Year Alcohol: Rarely Drugs: Marijuana (second hand exposure) Lives In: Home Constitutional: reports: fatigue; denies: chills, diaphoresis, fever, malaise, sweats, weakness, others EENTM: denies: blurred vision, double vision, ear bleeding, ear discharge, ear drainage, ear pain, ear ringing, eye pain, eye redness, hearing loss, mouth pain, mouth swelling, nasal discharge, nose bleeding, nose congestion, nose pain, photophobia, tearing, throat pain, throat swelling, voice changes, others Respiratory: denies: cough, hemoptysis, orthopnea, SOB at rest, shortness of breath, SOB with excertion, stridor, wheezing, others Cardiovascular: denies: chest pain, dizzy spells, diaphoresis, Dyspnea on exertion, edema, irregular heart beat, left arm pain, lightheadedness, palpitations, PND, syncope, others Gastrointestinal: reports: nausea, vomiting; denies: abdomen distended, abdominal pain, blood streaked bowels, constipated, diarrhea, dysphagia, difficulty swallowing, hematemesis, melena, poor appetite, poor fluid intake, rectal bleeding, rectal pain, others Genitourinary: denies: abnormal vagina bleeding, burning, dyspareunia, dysuria, flank pain, frequency, hematuria, incontinence, pain, , vagina discharge, urgency, others Neurological: denies: dizziness, fainting, headache, left sided numbness, left sided weakness, numbness, paresthesia, pre-existing deficit, right sided numbness, right sided weakness, seizure, speech problems, tingling, tremors, weakness, others Musculoskeletal: denies: back pain, gout, joint pain, joint swelling, muscle pain, muscle stiffness, neck pain, others Integumetry: denies: bruises, change in color, change in hair/nails, dryness, laceration, lesions, lumps, rash, wounds, others Allergic/Immunocompromised: denies: Difficulty Healing, Frequent Infections, Hives, Itching, others Hematologic/Lymphatic: denies: anemia, blood clots, easy bleeding, easy bruising, swollen glands, others Endocrine: denies: excessive hunger, excessive sweating, excessive thirst, excessive urination, flushing, intolerance to cold, intolerance to heat, unexplained weight gain, unexplained weight loss, others Psychiatric: denies: anxiety, bipolar disorder, depression, hopeless, panic disorder, schizophrenia, sleepless, suicidal, others All Other Systems: Reviewed and Negative Physical Exam General Appearance: Moderate Distress HEENT: Normal ENT Inspection, Pharynx Normal, TMs Normal Neck: Full Range of Motion, Non-Tender, Normal, Normal Inspection Respiratory: Chest Non-Tender, Lungs Clear, No Accessory Muscle Use, No Respiratory Distress, Normal Breath Sounds Cardiovascular: No Edema, No JVD, No Murmur, No Gallop, Normal Peripheral Pulses, Regular Rate/Rhythm Breast Exam: Deferred Gastrointestinal: No Organomegaly, Non Tender, No Pulsatile Mass, Normal Bowel Sounds, Soft Genitalia: Deferred Pelvic: Deferred Rectal: Deferred Extremities: No calf tenderness, Normal capillary refill, Normal inspection, Normal range of motion, Non-tender, No pedal edema Musculoskeletal : Apperance: Normal Neurologic: Alert, optical design engineer II-XII nml as Tested, Motor Weakness, Normal Affect, Normal Mood, No Sensory Deficits Cerebellar Function: Normal Reflexes: Normal Skin: Dry, Normal Color, Warm Lymphatic: No Adenopathy Was a procedure done? Was a procedure done?: No Differential Dx Considerations may include: Generalized weakness, electrolyte imbalance, hyperemesis gravidarum, UTI X-Ray, Labs, Meds, VS Vital Signs Date Time Temp Pulse Resp B/P (MAP) Pulse Ox O2 Delivery O2 Flow Rate FiO2 08/23/25 12:18 92 16 122/86 (98) 98 08/23/25 10:15 98.3 95 16 121/93 99 98.3 Lab Test 08/23/25 13:54 08/23/25 11:33 Range/Units Urine Color Light-yellow Yellow Urine Clarity Clear Clear Urine pH 6.0 5.0-9.0 Urine Specific Dennis 1.023 1.001-1.035 Urine Protein Negative Negative Urine Ketones Trace Negative Urine Blood Negative Negative /uL Urine Nitrite Negative Negative Urine Bilirubin Negative Negative Urine Urobilinogen Normal Negative mg/dL Urine Leukocyte Esterase Negative Negative /uL Urine RBC 1 0 - 4 /hpf Urine Microscopic WBC 2 0-5 /HPF Urine Squamous Epithelial Cells Mod <5 /hpf Urine Bacteria None seen None Seen /hpf Urine Glucose Normal Normal mg/dL White Blood Count 12.8 H 4.4-10.8 10^3/uL Red Blood Count 5.79 H 4.0-5.20 10^6/uL Hemoglobin 16.9 H 12.2-16.2 g/dL Hematocrit 49.7 H 36.0-46.0 % Mean Corpuscular Volume 85.9 80.0-100.0 fL Mean Corpuscular Hemoglobin 29.2 28.0-32.0 pg Mean Corpuscular Hemoglobin Concent 34.0 32.0-36.0 g/dL Red Cell Distribution Width 13.6 11.8-14.3 % Platelet Count 285 140-450 10^3/uL Mean Platelet Volume 9.2 6.9-10.8 fL Neutrophils (%) (Auto) 84.9 H 37.0-80.0 % Lymphocytes (%) (Auto) 9.1 L 10.0-50.0 % Monocytes (%) (Auto) 5.4 0.0-12.0 % Eosinophils (%) (Auto) 0.3 0.0-7.0 % Basophils (%) (Auto) 0.3 0.0-2.0 % Neutrophils # (Auto) 10.9 H 1.6-8.6 10 ^3/uL Lymphocytes # (Auto) 1.2 0.4-5.4 10 ^3/uL Monocytes # (Auto) 0.7 0-1.3 10 ^3/uL Eosinophils # (Auto) 0 0-0.8 10 ^3/uL Basophils # (Auto) 0 0-0.2 10 ^3/uL Nucleated Red Blood Cells 0.1 % Sodium Level 139 136-145 mmol/L Potassium Level 4.0 3.5-5.1 mmol/L Chloride Level 105 98-107 mmol/L Carbon Dioxide Level 22 20-31 mmol/L Anion Gap 12 5-15 Blood Urea Nitrogen 7 L 9-23 mg/dL Creatinine 0.62 0.550-1.02 mg/dL Glomerular Filtration Rate Calc 125 >90 mL/min BUN/Creatinine Ratio 11.3 10.0-20.0 Serum Glucose 68 L 74-106 mg/dL Calcium Level 9.5 8.7-10.4 mg/dL Beta-Hydroxybutyric Acid 0.160 < 0.4 mmol/L Beta HCG, Quantitative 560448.3 H 1.5-4.2 mIU/mL Current Medications Medications (Trade) Dose Ordered Sig/Manpreet Route Start Time Stop Time Status Last Admin Sodium Chloride 1,000 ml @ 1,000 mls/hr Q1H ONCE IV 08/23/25 10:30 08/23/25 11:29 DC 08/23/25 12:37 Ondansetron HCl (Zofran) 4 mg ONCE ONCE IV 08/23/25 10:30 08/23/25 10:31 DC 08/23/25 12:37 The patient's CBC shows an elevated white blood cell count of 12.8 The breasts with a CBCs within normal limits And IV Hep-Lock was established and the patient was given 1 L bolus of normal saline The patient was given Zofran 4 mg IV push for the nausea and vomiting The urine test is negative for any UTI At this time, the patient has been discharge Ultrasound of the pelvis shows: IMPRESSION: IUP single live fetus 8 weeks 0 days AUA corresponding to an NATHANIEL of 04/04/2025. Images Reviewed?: Images reviewed and evaluated by me Time of 1ST Reevaluation: 10:55 Reevaluation 1ST: Unchanged Patient Education/Counseling: Diagnosis, Treatment, Prognosis, Need For Follow Up Family Education/Counseling: No Family Present SEPSIS Sepsis Screen Date sepsis recognized/suspect: Aug 23, 2025 Time Sepsis recognized/suspect: 1018 Recent Procedure: No On Antibiotic Therapy: No Respiratory Rate >20: No Heart Rate >90: No Temp<36 C (96.8 F) or >38.3 C: No SBP <90 or MAP <65 mmHG: No New Acute Mental Status Change: No Is the patient on CPAP, BIPAP,: No Physician Orders Heplock Iv (08/23/25 10:26) Ob Ultrasound Comp Less 14wks (08/23/25 10:26) Vital Signs Date Time Temp Pulse Resp B/P (MAP) Pulse Ox O2 Delivery O2 Flow Rate FiO2 08/23/25 12:18 92 16 122/86 (98) 98 08/23/25 10:15 98.3 95 16 121/93 99 98.3 Laboratory Tests Test 08/23/25 11:33 White Blood Count 12.8 10^3/uL (4.4-10.8) H Medications Medications Dose Ordered Sig/Manpreet Route Start Time Stop Time Status Last Admin Dose Admin Ondansetron HCl 4 mg ONCE ONCE IV 08/23/25 10:30 08/23/25 10:31 DC 08/23/25 12:37 Sodium Chloride 1,000 ml @ 1,000 mls/hr Q1H ONCE IV 08/23/25 10:30 08/23/25 11:29 DC 08/23/25 12:37 Departure 1 Departure Time of Disposition: 14:18 Impression: Primary Impression: Hyperemesis gravidarum Disposition: 01 HOME / SELF CARE / HOMELESS Condition: Fair Discharged With: Self Critical Care Note Critical Care Time?: No Stability Stability form required: No Heart Score Heart Score: Heart Score Response (Comments) Value History N/A 0 EKG N/A 0 Age N/A 0 Risk Factors N/A 0 Troponin N/A 0 Total 0 I personally scribed for DASHA ONEILL MD ([email or web address]) on 08/23/25 at 10:31. Electronically submitted by Tomas Roman ([email or web address]). DASHA ONEILL MD Aug 23, 2025 10:31
--- NOTE | 2025-08-23 11:04 | DVH ---
OB ULTRASOUND <14 WEEKS: HISTORY: pain and vomiting TECHNIQUE: Multiple real-time grayscale sonographic images of the pelvis with duplex Doppler color flow, spectral and M-mode analysis. TRANSDUCERS: Transvaginal FINDINGS: The uterus measures 10.9 x 6.4 x 6.9 cm. The cervix not well visualized. Right ovary is not well visualized due to obscuration from bowel gas. Left ovary measures 4.1 x 2.8 x 2.6 cm with normal Doppler color flow. There is a simple ovarian cyst 2.2 cm. IUP single live fetus at 8 weeks 0 days average ultrasound age based on mean crown-rump length of 1.8 cm and gestational sac size of 2.8 cm heart rate detected at 166 beats per minute. Yolk sac visualized. IMPRESSION: IUP single live fetus 8 weeks 0 days AUA corresponding to an NATHANIEL of 04/04/2025.
[2025-08-23 11:57] LABS: Hematocrit 49.7 % (36.0-46.0); Hemoglobin 16.9 g/dL (12.2-16.2); Mean Corpuscular Hemoglobin 29.2 pg (28.0-32.0); Mean Corpuscular Volume 85.9 fL (80.0-100.0); Nucleated Red Blood Cells % 0.1 %
[2025-08-23 12:06] LABS: Chloride 105 mmol/L (98-107); Potassium 4.0 mmol/L (3.5-5.1); Sodium 139 mmol/L (136-145)
[2025-08-23 12:07] LABS: Anion Gap 12 (5-15); Calcium 9.5 mg/dL (8.7-10.4); Carbon Dioxide 22 mmol/L (20-31)
[2025-08-23 12:12] LABS: BUN/Creatinine Ratio 11.3 (10.0-20.0)
[2025-08-23 12:13] LABS: Blood Urea Nitrogen 7 mg/dL (9-23); Glucose 68 mg/dL (74-106)
[2025-08-23 12:18] VITALS: BP 122/86; PULSE 92; RESP 16; O2SAT 98
[2025-08-23] MEDS: ONDANSETRON HCL 4 MG/2 ML VIAL IV ONE (12:37)
[2025-08-23] MEDS: SODIUM CHLORIDE 0.9% 1,000 ML IV ONE (12:37)
[2025-08-23 14:15] LABS: Urine Protein, UAD Negative (Negative)
== END 2025-08-24 14:41 | disposition home or self-care (01) ==
LOC: ER 10:13
DX: O21.0 Mild hyperemesis gravidarum (principal); O20.0 Threatened abortion; Z3A.08 8 weeks gestation of pregnancy; Z88.0 Allergy status to penicillin
CPT/HCPCS: 36415; 76801; 80048; 81001; 82010; 84702; 85025; 96361; 96374; 99285; J2405; J7030